=== PATIENT | male | born 1985 | race American Indian/Alaskan Native ===

== ENCOUNTER 2021-04-14 23:56 | Emergency (ER) | payer OTHER ==
[~2021-04-14] VITALS: Ht 167.6 cm; Wt 81.8 kg
[2021-04-15] MEDS ORDERED: normal saline 1000ML IV soln IVB ONE (00:20)
[2021-04-15 01:16] LABS: HEMOGLOBIN 15.1 g/dl (14.0-17.9)
[2021-04-15 01:19] LABS: BASOPHILS # (AUTO) 0.1 X10'3 (0-0.2); BASOPHILS % (AUTO) 1.3 % (0-1); EOSINOPHILS # (AUTO) 0.4 X10'3 (0-0.9); EOSINOPHILS % (AUTO) 5.1 % (0-6); LYMPHOCYTES # (AUTO) 2.7 X10'3 (1.1-4.8); LYMPHOCYTES % (AUTO) 31.3 % (21-51); MEAN CORPUSCULAR HEMOGLOBIN 32.5 PG (27.0-31.0); MEAN CORPUSCULAR HGB CONC 34.3 g/dL (33.0-36.5); MEAN CORPUSCULAR VOLUME 94.7 FL (78-98); MEAN PLATELET VOLUME 9.1 FL (7.4-10.4); MONOCYTES # (AUTO) 0.6 X10'3 (0-0.9); MONOCYTES % (AUTO) 7.5 % (2-12); NEUTROPHILS # (AUTO) 4.7 X10'3 (1.8-7.7); NEUTROPHILS % (AUTO) 54.8 % (42-75); PLATELET COUNT 189 X10'3 (140-440); RED BLOOD COUNT 4.65 X10'6 (4.70-6.10); RED CELL DISTRIBUTION WIDTH 13.8 % (11.5-14.5); WHITE BLOOD COUNT 8.6 X10'3 (4.5-11.0)
[2021-04-15 01:34] LABS: ALANINE AMINOTRANSFERASE 25 U/L (12-78); ALBUMIN 3.7 G/DL (3.4-5.0); ALKALINE PHOSPHATASE 50 IU/L (46-116); ANION GAP 11 (8-16); ASPARTATE AMINO TRANSFERASE 20 U/L (10-37); BILIRUBIN,TOTAL 0.2 MG/DL (0.1-1.0); BLOOD UREA NITROGEN 8 MG/DL (7-18); BUN/CREATININE RATIO 9.1 (5.4-32.0); CHLORIDE 110 MMOL/L (99-107); CREATININE 0.88 MG/DL (0.60-1.10); ETHANOL 0.175 GM/DL (0.0-0.010); GLUCOSE 89 MG/DL (70-104); POTASSIUM 3.6 MMOL/L (3.5-5.1); SODIUM 149 MMOL/L (135-145); TOTAL PROTEIN 7.4 G/DL (6.4-8.2); eGFR > 90 ML/MIN
[2021-04-15 01:37] LABS: URINE AMPHETAMINE SCREEN POSITIVE (Neg); URINE BARBITUATE SCREEN NEGATIVE (Neg); URINE BENZODIAZEPINES SCREEN POSITIVE (Neg); URINE CANNABINOID SCREEN NEGATIVE (Neg); URINE COCAINE SCREEN NEGATIVE (Neg); URINE METHADONE SCREEN NEGATIVE (Neg); URINE OPIATE SCREEN POSITIVE (Neg); URINE PHENCYCLIDINE SCREEN NEGATIVE (Neg)
[2021-04-15 01:41] LABS: ACETAMINOPHEN < 2.0 UG/ML (10-30)
[2021-04-15 03:52] VITALS: BP 121/86
== END 2021-04-15 03:56 | disposition home or self-care (01) ==
LOC: ER 23:56
DX: F10.129 Alcohol abuse with intoxication, unspecified (principal); T50.905A Adverse effect of unspecified drugs, medicaments and biological substances, initial encounter; F32.9 Major depressive disorder, single episode, unspecified; R55 Syncope and collapse; E11.9 Type 2 diabetes mellitus without complications; F17.200 Nicotine dependence, unspecified, uncomplicated; F12.90 Cannabis use, unspecified, uncomplicated; F15.90 Other stimulant use, unspecified, uncomplicated; Z72.89 Other problems related to lifestyle; Y90.0 Blood alcohol level of less than 20 mg/100 ml
CPT/HCPCS: 80053; 80305; 80320; 80329; 85025; 96360; 96361; 99284; J7030

== ENCOUNTER 2023-06-26 18:08 | Emergency (ER) | payer SELFPAY ==
[~2023-06-26] VITALS: Ht 170.2 cm; Wt 93.2 kg
[2023-06-26 18:20] VITALS: BP 128/95; PULSE 79; RESP 15; TEMP 98; O2SAT 96
[2023-06-26] MEDS ORDERED: normal saline 1000ML IV soln IV ONE (18:35)
[2023-06-26] MEDS ORDERED: ondansetron/PF 4mg/2ml inj IV ONE ×2 (18:55)
[2023-06-26 20:16] LABS: ABG BASE EXCESS -0.3 mmol/L (-2.0-2.0); ABG HCO3 20.4 mmol/L (22.0-26.0); ABG OXYGEN SATURATION 97.3 % (94-97); ABG PCO2 (T) 25.3 mmHg (35.0-48.0); ABG PH (T) 7.524 (7.340-7.440); ABG PO2 (T) 90.4 mmHg (75.0-100.0); ALLEN'S TEST Modified; FCOHb 0.2 % (0.0-3.9); FHHb 2.7 % (0.0-5.0); FMetHb 0.3 % (0.0-1.5); FO2Hb 96.8 % (94-97); MODE ROOM AIR; PATIENT TEMPERATURE 36.6; TOTAL HEMOGLOBIN 18.2 G/dl (14.0-17.9)
[2023-06-26 20:43] LABS: BASOPHILS # (AUTO) 0.1 X10'3 (0-0.2); BASOPHILS % (AUTO) 0.5 % (0-1); EOSINOPHILS % (AUTO) 0.1 % (0-6); HEMATOCRIT 51.7 % (42.0-52.0); HEMOGLOBIN 17.5 g/dl (14.0-17.9); LYMPHOCYTES % (AUTO) 14.2 % (21-51); MEAN CORPUSCULAR HEMOGLOBIN 29.9 PG (27.0-31.0); MEAN CORPUSCULAR VOLUME 88.1 FL (78-98); MONOCYTES # (AUTO) 0.9 X10'3 (0-0.9); NEUTROPHILS # (AUTO) 11.2 X10'3 (1.8-7.7); NEUTROPHILS % (AUTO) 79.2 % (42-75); PLATELET COUNT 248 X10'3 (140-440); RED BLOOD COUNT 5.86 X10'6 (4.70-6.10); RED CELL DISTRIBUTION WIDTH 14.2 % (11.5-14.5); WHITE BLOOD COUNT 14.1 X10'3 (4.5-11.0)
[2023-06-26] MEDS: thiamine 100mg tablet PO ONE (21:04)
[2023-06-26] MEDS: famotidine/PF 10 mg/ml inj IV ONE (21:04)
[2023-06-26 21:10] LABS: ALANINE AMINOTRANSFERASE 34 U/L (12-78); ALBUMIN 5.3 G/DL (3.4-5.0); ALKALINE PHOSPHATASE 78 IU/L (46-116); ANION GAP 19 (8-16); ASPARTATE AMINO TRANSFERASE 27 U/L (10-37); BILIRUBIN,TOTAL 0.7 MG/DL (0.1-1.0); BLOOD UREA NITROGEN 17 MG/DL (7-18); CALCIUM 10.8 MG/DL (8.5-10.1); CHLORIDE 97 MMOL/L (99-107); CREATININE 1.42 MG/DL (0.60-1.10); GLUCOSE 112 MG/DL (70-104); POTASSIUM 3.7 MMOL/L (3.5-5.1); SODIUM 138 MMOL/L (135-145); TOTAL PROTEIN 10.6 G/DL (6.4-8.2); eCRCL 67 ML/MIN; eGFR 56 ML/MIN
[2023-06-26 21:13] LABS: ETHANOL < 10 MG/DL (<10); LIPASE 185 U/L (16-77); SALICYLATE 1.3 MG/DL (4.0-20.0)
[2023-06-26 21:17] LABS: ACETAMINOPHEN < 2.0 UG/ML (10-30)
[2023-06-27] MEDS ORDERED: multivitamins, therapeutics tablet PO SCH (08:00)
[2023-07-01] MEDS ORDERED: folic acid 1mg tablet PO SCH (08:00)
== END 2023-06-27 03:33 | disposition left against medical advice (07) ==
LOC: ER 18:08
DX: T50.901A Poisoning by unspecified drugs, medicaments and biological substances, accidental (unintentional), initial encounter (principal); G93.49 Other encephalopathy; R41.82 Altered mental status, unspecified; Y92.89 Other specified places as the place of occurrence of the external cause
CPT/HCPCS: 36415; 36600; 70450; 71045; 80053; 80320; 80329; 82140; 82803; 83690; 84484; 85018; 85025; 93005; 96374; 99285; J3490; J7030